=== PATIENT | female | born 1950 | race African-American/Black ===

== ENCOUNTER 2020-04-02 04:24 | Day surgery (SDC) | payer OTHER, BC ==
[2020-03-31 15:37] VITALS: BMI 30.9
[~2020-04-02 04:24] MED LIST: BUPIVACAINE HCL/PF 2.5 MG/ML - 30 ML VIAL IJ ONE; IOHEXOL 180 MG/1 ML ML IJ ONE; LIDOCAINE HCL 1%, 10 MG/ML (20ML VIAL) INF ONE
[2020-04-02] MEDS ORDERED: LIDOCAINE HCL 1%, 10 MG/ML (20ML VIAL) ONE (07:11)
[2020-04-02] MEDS ORDERED: BUPIVACAINE HCL/PF 0.25% (2.5MG/ML) 10 ML VIAL ONE (07:12)
[2020-04-02] MEDS ORDERED: DEXAMETHASONE SOD PHOSPHATE/PF 10 MG/ML SDV ONE (07:18)
[2020-04-02] MEDS ORDERED: BUPIVACAINE HCL/PF 0.75% 10 ML VIAL ONE (07:18)
[2020-04-02] MEDS ORDERED: TRIAMCINOLONE ACET 40MG/1ML VIAL ONE (07:26)
--- NOTE | 2020-04-02 08:01 | PROC ---
Procedure Note Procedure: Pre procedure Diagnosis: Sacroilliac Joint Dysfunction Post Procedure Diagnosis: same Anesthesia: local Procedure Performed: Right & Left Sacroilliac Joint Injection Under Fluoroscopic Guidance After the risks and benefits were explained, informed consent was obtained. The patient was then taken to the procedure room and positioned prone on the procedure table. Time out was performed. The region overlying the right sacroiliac joint was identified using fluoroscopy. The skin was prepped and draped in the usual sterile fashion. The skin and soft tissues were anesthetized using 2% lidocaine. Using fluoroscopic guidance, a 22 gauge 3.5 inch spinal needle was then introduced to the inferior aspect of the posterior Right sacroiliac joint. Omnipaque 180 confirmed appropriate needle placement. 1 cc .5% bupivacaine and 1 cc Kenalog was then injected. The same was repeated on the Left. The patient tolerated the procedure well and there were no complications. The patient was taken to the post procedure recovery area in good condition. Vital signs remained stable before, during, and after the procedure. The patient was given oral and written follow-up instructions. The patient was given a follow up appointment with me in the near future. Dru Carter DO
[2020-04-02] MEDS ORDERED: LIDOCAINE HCL 1%, 10 MG/ML (20ML VIAL) INF ONE (08:10)
[2020-04-02] MEDS ORDERED: BUPIVACAINE HCL/PF 2.5 MG/ML - 30 ML VIAL IJ ONE (08:10)
[2020-04-02] MEDS ORDERED: TRIAMCINOLONE ACET 40MG/1ML VIAL IM ONE ×3 (08:10)
[2020-04-02] MEDS ORDERED: IOHEXOL 180 MG/1 ML ML IJ ONE (08:10)
[2020-04-02 08:30] VITALS: TEMP 96.8
[2020-04-02 08:48] VITALS: BP 140/80; PULSE 60
== END 2020-04-02 08:45 | disposition home or self-care (01) ==
LOC: JASU-SURG 04:24
PROVIDERS: ATTEND Pain Medicine Pain Medicine
PROC: 3E0U3BZ Introduction of Anesthetic Agent into Joints, Percutaneous Approach (ICD-10-PCS; 2020-04-02)
PROC: 3E0U33Z Introduction of Anti-inflammatory into Joints, Percutaneous Approach (ICD-10-PCS; principal; 2020-04-02 08:00)
DX: M53.3 Sacrococcygeal disorders, not elsewhere classified (principal)
CPT/HCPCS: 76000-TC-FY

== ENCOUNTER 2020-07-23 04:53 | Day surgery (SDC) | payer OTHER, BC ==
[2020-07-21 18:23] VITALS: BMI 29.5
[~2020-07-23 04:53] MED LIST changes: +BUPIVACAINE HCL/PF 0.5% (5 MG/ML) 30 ML VIAL IJ ONE; -BUPIVACAINE HCL/PF 2.5 MG/ML - 30 ML VIAL IJ ONE; -LIDOCAINE HCL 1%, 10 MG/ML (20ML VIAL) INF ONE
[2020-07-23] MEDS ORDERED: TRIAMCINOLONE ACET 40MG/1ML VIAL ONE (07:16)
[2020-07-23] MEDS ORDERED: BUPIVACAINE HCL/PF 0.25% (2.5MG/ML) 10 ML VIAL ONE (07:16)
[2020-07-23] MEDS ORDERED: LIDOCAINE HCL/PF 1% SDV 5ML VIAL ONE (07:16)
[2020-07-23] MEDS ORDERED: DEXAMETHASONE SOD PHOSPHATE/PF 10 MG/ML SDV ONE (07:16)
[2020-07-23 08:43] VITALS: TEMP 97.8
[2020-07-23] MEDS ORDERED: IOHEXOL 180 MG/1 ML ML IJ ONE (10:58)
[2020-07-23] MEDS ORDERED: BUPIVACAINE HCL/PF 0.5% (5 MG/ML) 30 ML VIAL IJ ONE (10:58)
[2020-07-23 15:25] VITALS: BP 139/71; PULSE 60
== END 2020-07-23 11:50 | disposition home or self-care (01) ==
LOC: JASU-SURG 04:53
PROVIDERS: ATTEND Pain Medicine Pain Medicine
PROC: BR14YZZ Fluoroscopy of Cervical Facet Joint(s) using Other Contrast (ICD-10-PCS; 2020-07-23)
PROC: 3E0T3BZ Introduction of Anesthetic Agent into Peripheral Nerves and Plexi, Percutaneous Approach (ICD-10-PCS; principal; 2020-07-23 10:00)
DX: M47.812 Spondylosis without myelopathy or radiculopathy, cervical region (principal)

== ENCOUNTER 2020-08-27 04:17 | Day surgery (SDC) | payer OTHER, BC ==
[2020-08-24 14:52] VITALS: BMI 29.5
[2020-08-27] MEDS ORDERED: TRIAMCINOLONE ACET 40MG/1ML VIAL ONE (07:16)
[2020-08-27] MEDS ORDERED: LIDOCAINE HCL/PF 1% SDV 5ML VIAL ONE (07:21)
[2020-08-27] MEDS ORDERED: LIDOCAINE HCL/PF 2% SDV 5ML VIAL ONE (07:21)
[2020-08-27] MEDS ORDERED: BUPIVACAINE HCL/PF 0.25% (2.5MG/ML) 10 ML VIAL ONE (07:23)
[2020-08-27] MEDS ORDERED: BUPIVACAINE HCL/PF 0.75% 10 ML VIAL ONE (07:23)
[2020-08-27] MEDS ORDERED: BUPIVACAINE HCL/PF 0.75% 10 ML VIAL NR ONE (08:23)
[2020-08-27] MEDS ORDERED: LIDOCAINE HCL 1% PRESERVATIVE FREE - 30ML VIAL IJ ONE (08:23)
[2020-08-27] MEDS ORDERED: IOHEXOL 180 MG/1 ML ML IJ ONE (08:23)
[2020-08-27 09:01] VITALS: PULSE 68; TEMP 97.8
[2020-08-27 12:28] VITALS: BP 152/80
== END 2020-08-27 09:40 | disposition home or self-care (01) ==
LOC: JASU-SURG 04:17
PROVIDERS: ATTEND Pain Medicine Pain Medicine
PROC: 3E0T33Z Introduction of Anti-inflammatory into Peripheral Nerves and Plexi, Percutaneous Approach (ICD-10-PCS; 2020-08-27)
PROC: 3E0T3BZ Introduction of Anesthetic Agent into Peripheral Nerves and Plexi, Percutaneous Approach (ICD-10-PCS; principal; 2020-08-27 08:00)
DX: M47.816 Spondylosis without myelopathy or radiculopathy, lumbar region (principal)
CPT/HCPCS: 76000-TC-FY

== ENCOUNTER 2020-09-24 04:21 | Day surgery (SDC) | payer OTHER, BC ==
[2020-09-22 08:52] VITALS: BMI 28.7
[2020-09-24 08:00] VITALS: TEMP 98
[2020-09-24] MEDS ORDERED: LIDOCAINE 1% P/F 10 MG/ML VIAL PNB ONE (10:50)
[2020-09-24 11:58] VITALS: BP 168/84; PULSE 65
== END 2020-09-24 11:55 | disposition home or self-care (01) ==
LOC: JASU-SURG 04:21
PROVIDERS: ATTEND Pain Medicine Pain Medicine
PROC: 01HY3MZ Insertion of Neurostimulator Lead into Peripheral Nerve, Percutaneous Approach (ICD-10-PCS; principal; 2020-09-24 09:30)
DX: G89.4 Chronic pain syndrome (principal); M54.5 Low back pain
CPT/HCPCS: 64555; L8679; 76000-TC-FY

== ENCOUNTER 2020-10-15 04:12 | Day surgery (SDC) | payer OTHER, BC ==
[2020-10-12 13:28] VITALS: BMI 28.7
[2020-10-15] MEDS ORDERED: SODIUM CHLORIDE 0.9% P/F 10 ML VIAL IJ ONE ×2 (11:31)
[2020-10-15] MEDS ORDERED: LIDOCAINE HCL/PF 1% SDV 5ML VIAL ONE (11:32)
[2020-10-15] MEDS ORDERED: LIDOCAINE HCL 1% PRESERVATIVE FREE - 30ML VIAL IJ ONE (11:46)
[2020-10-15 13:17] VITALS: BP 162/72; PULSE 60; TEMP 96.8
== END 2020-10-15 13:35 | disposition home or self-care (01) ==
LOC: JASU-SURG 04:12
PROVIDERS: ATTEND Pain Medicine Pain Medicine
PROC: 01HY3MZ Insertion of Neurostimulator Lead into Peripheral Nerve, Percutaneous Approach (ICD-10-PCS; principal; 2020-10-15 11:30)
DX: G89.4 Chronic pain syndrome (principal); M54.5 Low back pain; Z88.0 Allergy status to penicillin; Z88.2 Allergy status to sulfonamides; Z91.048 Other nonmedicinal substance allergy status
CPT/HCPCS: 64555; C1778; 76000-TC-FY

== ENCOUNTER 2021-04-15 04:27 | Day surgery (SDC) | payer OTHER, BC ==
[2021-04-13 11:19] VITALS: BMI 29.5
[2021-04-15] MEDS ORDERED: LIDOCAINE HCL/PF 1% SDV 5ML VIAL ONE (07:19)
[2021-04-15] MEDS ORDERED: DEXAMETHASONE SOD PHOSPHATE 10 MG/1 ML VIAL ONE (08:54)
[2021-04-15] MEDS ORDERED: DEXAMETHASONE SOD PHOSPHATE 10 MG/1 ML VIAL IM ONE (09:21)
[2021-04-15] MEDS ORDERED: LIDOCAINE HCL 1% PRESERVATIVE FREE - 30ML VIAL IJ ONE (09:21)
[2021-04-15] MEDS ORDERED: IOHEXOL 180 MG/1 ML ML IJ ONE (09:22)
[2021-04-15 09:37] VITALS: BP 153/89; PULSE 63; TEMP 98.5
== END 2021-04-15 10:23 | disposition home or self-care (01) ==
LOC: JASU-SURG 04:27
PROVIDERS: ATTEND Pain Medicine Pain Medicine
PROC: 3E0R33Z Introduction of Anti-inflammatory into Spinal Canal, Percutaneous Approach (ICD-10-PCS; 2021-04-15)
PROC: B01BZZZ Fluoroscopy of Spinal Cord (ICD-10-PCS; 2021-04-15)
PROC: 3E0R3BZ Introduction of Anesthetic Agent into Spinal Canal, Percutaneous Approach (ICD-10-PCS; principal; 2021-04-15 08:45)
DX: M54.16 Radiculopathy, lumbar region (principal); M48.061 Spinal stenosis, lumbar region without neurogenic claudication
CPT/HCPCS: 76000-TC-FY; J1100

== ENCOUNTER 2021-05-31 04:48 | Day surgery (SDC) | payer OTHER, BC ==
[2021-05-30 10:23] VITALS: BMI 29.2
[2021-05-31] MEDS ORDERED: TRIAMCINOLONE ACETONIDE 40 MG/ML 10 ML VIAL NR ONE (09:47)
[2021-05-31] MEDS ORDERED: BUPIVACAINE HCL/PF 0.5% (5 MG/ML) 30 ML VIAL IJ ONE (09:47)
[2021-05-31] MEDS ORDERED: IOHEXOL 180 MG/1 ML ML IJ ONE (09:49)
[2021-05-31 10:47] VITALS: BP 131/67; PULSE 65; TEMP 98.6
== END 2021-05-31 10:48 | disposition home or self-care (01) ==
LOC: JASU-SURG 04:48
PROVIDERS: ATTEND Pain Medicine Pain Medicine
PROC: 3E0U3BZ Introduction of Anesthetic Agent into Joints, Percutaneous Approach (ICD-10-PCS; 2021-05-31)
PROC: 3E0U33Z Introduction of Anti-inflammatory into Joints, Percutaneous Approach (ICD-10-PCS; principal; 2021-05-31 09:00)
DX: M53.3 Sacrococcygeal disorders, not elsewhere classified (principal)
CPT/HCPCS: 76000-TC-FY

== ENCOUNTER 2021-07-05 04:33 | Day surgery (SDC) | payer OTHER, BC ==
[2021-06-29 13:57] VITALS: BMI 28.7
[2021-07-05] MEDS ORDERED: MIDAZOLAM HCL 2 MG/2 ML SINGLE DOSE VIAL ONE ×4 (14:58→15:12)
[2021-07-05] MEDS ORDERED: CLINDAMYCIN 600 MG PREMIX BAG IVPB ONE (15:15)
[2021-07-05] MEDS ORDERED: LIDOCAINE HCL/PF 1% SDV 5ML VIAL ONE (15:26)
[2021-07-05] MEDS ORDERED: LIDOCAINE HCL 2% (20ML MULTI-DOSE VIAL) ONE (15:26)
[2021-07-05] MEDS ORDERED: LIDOCAINE HCL/PF 2% SDV 5ML VIAL ONE (15:27)
[2021-07-05 17:21] VITALS: TEMP 98
[2021-07-05 17:46] VITALS: BP 150/80; PULSE 68
== END 2021-07-05 17:48 | disposition home or self-care (01) ==
LOC: JASU-SURG 04:33
PROVIDERS: ATTEND Pain Medicine Pain Medicine
PROC: B01BYZZ Fluoroscopy of Spinal Cord using Other Contrast (ICD-10-PCS; 2021-07-05)
PROC: 01NB3ZZ Release Lumbar Nerve, Percutaneous Approach (ICD-10-PCS; principal; 2021-07-05 13:30)
DX: M48.062 Spinal stenosis, lumbar region with neurogenic claudication (principal)
CPT/HCPCS: 76000-TC-FY

== ENCOUNTER 2021-11-25 05:33 | Day surgery (SDC) | payer OTHER, BC ==
[2021-11-24 15:53] VITALS: BMI 28.7
[2021-11-25] MEDS ORDERED: KETOROLAC TROMETHAMINE 30 MG/1 ML VIAL ONE ×2 (10:34→10:35)
[2021-11-25] MEDS ORDERED: LIDOCAINE HCL 1% PRESERVATIVE FREE - 30ML VIAL IJ ONE (10:41)
[2021-11-25] MEDS ORDERED: IOHEXOL 180 MG/1 ML ML IJ ONE (10:45)
[2021-11-25] MEDS ORDERED: BUPIVACAINE HCL/PF 0.5% (5MG/ML) 10 ML VIAL IJ ONE (10:49)
[2021-11-25] MEDS ORDERED: KETOROLAC TROMETHAMINE 30 MG/1 ML VIAL IM ONE (10:49)
[2021-11-25 12:15] VITALS: TEMP 98.6
[2021-11-25 12:31] VITALS: BP 126/74; PULSE 62
== END 2021-11-25 11:20 | disposition home or self-care (01) ==
LOC: JASU-SURG 05:33
PROVIDERS: ATTEND Pain Medicine Pain Medicine
PROC: 3E0U33Z Introduction of Anti-inflammatory into Joints, Percutaneous Approach (ICD-10-PCS; 2021-11-25)
PROC: 3E0U3BZ Introduction of Anesthetic Agent into Joints, Percutaneous Approach (ICD-10-PCS; principal; 2021-11-25 10:30)
DX: M16.12 Unilateral primary osteoarthritis, left hip (principal)
CPT/HCPCS: 76000-TC-FY

== ENCOUNTER 2022-02-07 06:58 | Inpatient (IN) | payer OTHER, BC ==
[2022-02-02 16:52] VITALS: BMI 27.8
[2022-02-07] MEDS: CELECOXIB 200 MG CAPSULE PO ONE ×2 (07:47→19:10)
[2022-02-07] MEDS ORDERED: TRANEXAMIC ACID 1000 MG/10 ML VIAL IVPUSH ONE (08:15)
[2022-02-07] MEDS ORDERED: CEFAZOLIN 2 GM in DEXTROSE 5%-WATER - 50 ML IVPB ONE (08:15)
[2022-02-07] MEDS ORDERED: VANCOMYCIN 1,000 MG VIAL (RESTRICTED TO ID ONLY) ONE (08:37)
[2022-02-07] MEDS ORDERED: ceFAZolin SODIUM 1 GM VIAL ONE (08:37)
[2022-02-07] MEDS ORDERED: BUPIVACAINE HCL/PF 0.5% (5MG/ML) 10 ML VIAL ONE (08:50)
[2022-02-07] MEDS ORDERED: ROPIVACAINE HCL/PF 100 MG/20 ML VIAL ONE (08:50)
[2022-02-07] MEDS ORDERED: MIDAZOLAM HCL 2 MG/2 ML SINGLE DOSE VIAL ONE ×2 (08:50→09:58)
[2022-02-07] MEDS ORDERED: SUCCINYLCHOLINE CHLORIDE 200 MG/10 ML SYRINGE ONE (09:44)
[2022-02-07] MEDS ORDERED: PROPOFOL 20 ML ONE ×2 (09:44)
[2022-02-07] MEDS ORDERED: MAG HYDROX/AL HYDROX/SIMETH 30 ML UNIT-DOSE CUP PO PRN (11:10)
[2022-02-07] MEDS ORDERED: ONDANSETRON 4 MG/2 ML VIAL IVPUSH PRN ×2 (11:10→12:14)
[2022-02-07] MEDS ORDERED: LACTATED RINGERS SOLUTION 1,000 ML IV SCH (11:15)
[2022-02-07] MEDS ORDERED: oxyCODONE HCL 5 MG TABLET PO PRN (12:14)
[2022-02-07] MEDS: ACETAMINOPHEN 500 MG TABLET (FP) PO SCH ×4 (12:30→23:16)
[2022-02-07] MEDS: oxyCODONE HCL 5 MG TABLET PO PRN ×2 (15:40→21:09)
[2022-02-07] MEDS ORDERED: DEXTROSE 5%-WATER 100 ML IVPB ONE ×2 (17:35→23:52)
[2022-02-07] MEDS ORDERED: CEFAZOLIN SODIUM 2 GM VIAL ONE ×2 (17:35→23:52)
[2022-02-07] MEDS: CEFAZOLIN SODIUM 2 GM in DEXTROSE 5%-WATER 100 ML IVPB SCH (17:58)
[2022-02-07] MEDS: GABAPENTIN 300 MG CAPSULE PO SCH ×2 (19:11→21:09)
[2022-02-07] MEDS: SENNOSIDES/DOCUSATE COMBO (SENNA PLUS) TABLET (UD) PO SCH (21:10)
[2022-02-07] MEDS ORDERED: HYDROmorphone HCl 2 MG/ML VIAL IVPB ONE (22:45)
[2022-02-07] MEDS: oxyCODONE HCL 10 MG SUSTAINED ACTING TABLET PO SCH (23:33)
[2022-02-08] MEDS: CEFAZOLIN SODIUM 2 GM in DEXTROSE 5%-WATER 100 ML IVPB SCH (01:21)
[2022-02-08] MEDS: ACETAMINOPHEN 500 MG TABLET (FP) PO SCH ×2 (06:33→12:57)
[2022-02-08] MEDS: GABAPENTIN 300 MG CAPSULE PO SCH ×2 (06:33→14:54)
[2022-02-08] MEDS: oxyCODONE HCL 5 MG TABLET PO PRN (07:00)
[2022-02-08 07:28] LABS: HEMOGLOBIN 11.2 G/dL (10.7-15.3); MCH 23.7 pg (25.7-33.7); MCHC 34.1 g/dl (32.0-36.0); MEAN CELL VOLUME 69.5 fl (80-96); MEAN PLT VOLUME 9.5 fl (7.5-11.1); PLATELET COUNT 281.1 10^3/uL (134-434); RBC 4.75 10^6/uL (3.60-5.2); RDW 19.9 % (11.6-15.6); WHITE BLOOD COUNT 9.6 10^3/uL (4.0-10.8)
[2022-02-08] MEDS ORDERED: ASPIRIN 325 MG TABLET PO SCH (08:00)
[2022-02-08] MEDS: SENNOSIDES/DOCUSATE COMBO (SENNA PLUS) TABLET (UD) PO SCH (09:14)
[2022-02-08] MEDS: oxyCODONE HCL 10 MG SUSTAINED ACTING TABLET PO SCH (09:14)
[2022-02-08] MEDS ORDERED: MULTIVITAMINS (DAILY MVI) TABLET (FP) PO SCH (10:00)
[2022-02-08] MEDS ORDERED: PANTOPRAZOLE 40 MG TABLET PO SCH (10:00)
[2022-02-08] MEDS ORDERED: PATIENT'S OWN MEDICATION (NON-FORMULARY) (Amlodipine Besylate/Benazepril [Lotrel 5-10 Mg C PO SCH (10:00)
[2022-02-08] MEDS ORDERED: LISINOPRIL 10 MG TABLET PO SCH (10:00)
[2022-02-08] MEDS ORDERED: amLODIPine BESYLATE 5 MG TABLET (FP) PO SCH (10:00)
[2022-02-08 15:08] VITALS: BP 112/55; PULSE 56; TEMP 98.5
== END 2022-02-08 16:10 | disposition home health service (06) | DRG 470 ==
LOC: UNDOADMIN 06:58 → FM/S 06:58
PROVIDERS: ADMIT Orthopaedic Surgery; ATTEND Orthopaedic Surgery
PROC: 8E0W0CZ Robotic Assisted Procedure of Trunk Region, Open Approach (ICD-10-PCS; 2022-02-07)
PROC: 0SRB0JZ Replacement of Left Hip Joint with Synthetic Substitute, Open Approach (ICD-10-PCS; principal; 2022-02-07 10:12)
DX: M16.12 Unilateral primary osteoarthritis, left hip (principal); I10 Essential (primary) hypertension
CPT/HCPCS: 36415; 73502-TC-LT-FY; 85027; 88305-TC; 88311-TC; 94760; 97010-GP; 97116-GP; 97161-GP

== ENCOUNTER 2022-11-07 04:05 | Day surgery (SDC) | payer OTHER, BC ==
[2022-11-06 09:59] VITALS: BMI 28.7
[~2022-11-07 04:05] MED LIST changes: +ACETAMINOPHEN 500 MG TABLET (FP) PO PRN; -BUPIVACAINE HCL/PF 0.5% (5 MG/ML) 30 ML VIAL IJ ONE; -IOHEXOL 180 MG/1 ML ML IJ ONE
[2022-11-07] MEDS ORDERED: LIDOCAINE 1% P/F 10 MG/ML VIAL PNB ONE (09:55)
[2022-11-07 11:19] VITALS: BP 119/78; PULSE 58; RESP 17; TEMP 97.9
[2022-11-07] MEDS ORDERED: ACETAMINOPHEN 500 MG TABLET (FP) PO PRN (16:03)
== END 2022-11-07 11:12 | disposition home or self-care (01) ==
LOC: JASU-SURG 04:05
PROVIDERS: ATTEND Pain Medicine Pain Medicine
PROC: 01HY3MZ Insertion of Neurostimulator Lead into Peripheral Nerve, Percutaneous Approach (ICD-10-PCS; principal; 2022-11-07 10:00)
DX: G89.4 Chronic pain syndrome (principal); M54.2 Cervicalgia
CPT/HCPCS: 64555; C1778; 76000-TC-FY

== ENCOUNTER 2023-01-19 04:09 | Day surgery (SDC) | payer OTHER, BC ==
[2023-01-18 10:40] VITALS: BMI 28.7
[~2023-01-19 04:09] MED LIST changes: -ACETAMINOPHEN 500 MG TABLET (FP) PO PRN; +BUPIVACAINE HCL/PF 0.5% (5MG/ML) 10 ML VIAL IJ ONE; +LIDOCAINE HCL 1% PRESERVATIVE FREE - 30ML VIAL IJ ONE; +TRIAMCINOLONE ACET 40MG/1ML VIAL IM ONE
[2023-01-19] MEDS ORDERED: TRIAMCINOLONE ACET 40MG/1ML VIAL ONE (07:28)
[2023-01-19] MEDS ORDERED: LIDOCAINE HCL/PF 1% SDV 5ML VIAL ONE (07:28)
[2023-01-19] MEDS ORDERED: BUPIVACAINE HCL/PF 0.5% (5MG/ML) 10 ML VIAL ONE (07:28)
[2023-01-19] MEDS ORDERED: ACETAMINOPHEN 500 MG TABLET (FP) PO PRN (09:16)
[2023-01-19] MEDS ORDERED: TRIAMCINOLONE ACET 40MG/1ML VIAL IM ONE (11:12)
[2023-01-19] MEDS ORDERED: IOHEXOL 180 MG/1 ML ML IJ ONE (11:12)
[2023-01-19] MEDS ORDERED: LIDOCAINE HCL 1% PRESERVATIVE FREE - 30ML VIAL IJ ONE (11:12)
[2023-01-19] MEDS ORDERED: BUPIVACAINE HCL/PF 0.5% (5MG/ML) 10 ML VIAL IJ ONE (11:12)
[2023-01-19 11:50] VITALS: RESP 18
[2023-01-19 12:24] VITALS: BP 120/70; PULSE 70; TEMP 97.6
== END 2023-01-19 12:00 | disposition home or self-care (01) ==
LOC: JASU-SURG 04:09
PROVIDERS: ATTEND Pain Medicine Pain Medicine
PROC: 3E0U3BZ Introduction of Anesthetic Agent into Joints, Percutaneous Approach (ICD-10-PCS; 2023-01-19)
PROC: 3E0U33Z Introduction of Anti-inflammatory into Joints, Percutaneous Approach (ICD-10-PCS; principal; 2023-01-19 11:30)
DX: M53.3 Sacrococcygeal disorders, not elsewhere classified (principal)
CPT/HCPCS: 76000-TC-FY

== ENCOUNTER 2023-02-20 04:57 | Day surgery (SDC) | payer OTHER, BC ==
[2023-02-19 10:28] VITALS: BMI 27.1
[2023-02-20] MEDS ORDERED: LIDOCAINE HCL 1% PRESERVATIVE FREE - 30ML VIAL IJ ONE (09:38)
[2023-02-20] MEDS ORDERED: BUPIVACAINE HCL/PF 0.75% 10 ML VIAL NR ONE (09:46)
[2023-02-20] MEDS ORDERED: ACETAMINOPHEN 500 MG TABLET (FP) PO PRN (10:09)
[2023-02-20 10:26] VITALS: RESP 20
[2023-02-20 10:58] VITALS: BP 116/60; PULSE 64; TEMP 97.8
== END 2023-02-20 11:03 | disposition home or self-care (01) ==
LOC: JASU-SURG 04:57
PROVIDERS: ATTEND Pain Medicine Pain Medicine
PROC: 3E0T33Z Introduction of Anti-inflammatory into Peripheral Nerves and Plexi, Percutaneous Approach (ICD-10-PCS; 2023-02-20)
PROC: 3E0T3BZ Introduction of Anesthetic Agent into Peripheral Nerves and Plexi, Percutaneous Approach (ICD-10-PCS; principal; 2023-02-20 10:15)
DX: M47.816 Spondylosis without myelopathy or radiculopathy, lumbar region (principal)
CPT/HCPCS: 76000-TC-FY

== ENCOUNTER 2023-03-30 04:10 | Day surgery (SDC) | payer OTHER, BC ==
[2023-03-07 13:39] VITALS: BMI 27.1
[~2023-03-30 04:10] MED LIST changes: +ACETAMINOPHEN 500 MG TABLET (FP) PO PRN; -BUPIVACAINE HCL/PF 0.5% (5MG/ML) 10 ML VIAL IJ ONE; +BUPIVACAINE HCL/PF 0.75% 10 ML VIAL NR ONE; -LIDOCAINE HCL 1% PRESERVATIVE FREE - 30ML VIAL IJ ONE; +LIDOCAINE HCL 1% PRESERVATIVE FREE - 30ML VIAL INF ONE; -TRIAMCINOLONE ACET 40MG/1ML VIAL IM ONE
[2023-03-30] MEDS ORDERED: ACETAMINOPHEN 500 MG TABLET (FP) PO PRN (11:14)
[2023-03-30] MEDS ORDERED: LIDOCAINE HCL 1% PRESERVATIVE FREE - 30ML VIAL INF ONE (11:46)
[2023-03-30] MEDS ORDERED: BUPIVACAINE HCL/PF 0.75% 10 ML VIAL NR ONE (11:46)
[2023-03-30 12:14] VITALS: BP 130/78; PULSE 56; RESP 16; TEMP 97.3
== END 2023-03-30 12:40 | disposition home or self-care (01) ==
LOC: JASU-SURG 04:10
PROVIDERS: ATTEND Pain Medicine Pain Medicine
PROC: 3E0T33Z Introduction of Anti-inflammatory into Peripheral Nerves and Plexi, Percutaneous Approach (ICD-10-PCS; 2023-03-30)
PROC: 3E0T3BZ Introduction of Anesthetic Agent into Peripheral Nerves and Plexi, Percutaneous Approach (ICD-10-PCS; principal; 2023-03-30 11:30)
DX: M47.816 Spondylosis without myelopathy or radiculopathy, lumbar region (principal)
CPT/HCPCS: 76000-TC-FY

== ENCOUNTER 2023-05-01 04:13 | Day surgery (SDC) | payer OTHER, BC ==
[2023-04-26 15:55] VITALS: BMI 27.1
[2023-05-01] MEDS ORDERED: BUPIVACAINE HCL/PF 0.25% (2.5MG/ML) 10 ML VIAL ONE (07:48)
[2023-05-01] MEDS ORDERED: SODIUM CHLORIDE 0.9% P/F 10 ML VIAL IJ ONE (08:00)
[2023-05-01 09:55] VITALS: RESP 18
[2023-05-01] MEDS ORDERED: ACETAMINOPHEN 500 MG TABLET (FP) PO PRN (10:13)
[2023-05-01] MEDS ORDERED: LIDOCAINE 1% P/F 10 MG/ML VIAL INF ONE (11:56)
[2023-05-01] MEDS ORDERED: LIDOCAINE HCL/PF 2% SDV 5ML VIAL INF ONE (11:57)
[2023-05-01] MEDS ORDERED: DEXAMETHASONE SOD PHOSPHATE 10 MG/1 ML VIAL IVPUSH ONE (11:58)
[2023-05-01] MEDS ORDERED: BUPIVACAINE HCL/PF 0.75% 10 ML VIAL NR ONE (11:58)
[2023-05-01 15:02] VITALS: TEMP 97.8
[2023-05-01 15:03] VITALS: BP 129/70; PULSE 60
== END 2023-05-01 13:24 | disposition home or self-care (01) ==
LOC: JASU-SURG 04:13
PROVIDERS: ATTEND Pain Medicine Pain Medicine
PROC: 015B3ZZ Destruction of Lumbar Nerve, Percutaneous Approach (ICD-10-PCS; principal; 2023-05-01 11:30)
DX: M47.816 Spondylosis without myelopathy or radiculopathy, lumbar region (principal)
CPT/HCPCS: 76000-TC-FY; J1100

== ENCOUNTER 2023-06-01 04:54 | Day surgery (SDC) | payer OTHER, BC ==
[2023-05-23 15:45] VITALS: BMI 27.1
[~2023-06-01 04:54] MED LIST changes: +DEXAMETHASONE SOD PHOSPHATE 10 MG/1 ML VIAL IVPUSH ONE; +LIDOCAINE 1% P/F 10 MG/ML VIAL INF ONE; -LIDOCAINE HCL 1% PRESERVATIVE FREE - 30ML VIAL INF ONE; +LIDOCAINE HCL/PF 2% SDV 5ML VIAL INF ONE
[2023-06-01] MEDS ORDERED: LIDOCAINE HCL/PF 2% SDV 5ML VIAL ONE (07:26)
[2023-06-01] MEDS ORDERED: DEXAMETHASONE SOD PHOSPHATE 10 MG/1 ML VIAL ONE (07:26)
[2023-06-01] MEDS ORDERED: LIDOCAINE HCL/PF 1% SDV 5ML VIAL ONE (07:26)
[2023-06-01] MEDS ORDERED: BUPIVACAINE HCL/PF 0.75% 10 ML VIAL ONE (07:26)
[2023-06-01 12:36] VITALS: RESP 18
[2023-06-01] MEDS ORDERED: ACETAMINOPHEN 500 MG TABLET (FP) PO PRN (13:40)
[2023-06-01 15:15] VITALS: BP 139/85; PULSE 67; TEMP 97.7
== END 2023-06-01 14:45 | disposition home or self-care (01) ==
LOC: JASU-SURG 04:54
PROVIDERS: ATTEND Pain Medicine Pain Medicine
PROC: 01553ZZ Destruction of Median Nerve, Percutaneous Approach (ICD-10-PCS; principal; 2023-06-01 14:15)
DX: M47.816 Spondylosis without myelopathy or radiculopathy, lumbar region (principal)
CPT/HCPCS: 76000-TC-FY; J1100

== ENCOUNTER 2023-07-20 04:15 | Day surgery (SDC) | payer OTHER, BC ==
[2023-07-18 13:28] VITALS: BMI 27.1
[~2023-07-20 04:15] MED LIST changes: -ACETAMINOPHEN 500 MG TABLET (FP) PO PRN; -BUPIVACAINE HCL/PF 0.75% 10 ML VIAL NR ONE; +DEXAMETHASONE SOD PHOSPHATE 10 MG/1 ML VIAL IM ONE; -DEXAMETHASONE SOD PHOSPHATE 10 MG/1 ML VIAL IVPUSH ONE; +IOHEXOL 180 MG/1 ML ML IJ ONE; -LIDOCAINE 1% P/F 10 MG/ML VIAL INF ONE; +LIDOCAINE HCL 1% PRESERVATIVE FREE - 30ML VIAL IJ ONE; -LIDOCAINE HCL/PF 2% SDV 5ML VIAL INF ONE
[2023-07-20] MEDS ORDERED: LIDOCAINE HCL/PF 1% SDV 5ML VIAL ONE (07:08)
[2023-07-20] MEDS ORDERED: DEXAMETHASONE SOD PHOSPHATE 10 MG/1 ML VIAL ONE (07:08)
[2023-07-20] MEDS ORDERED: SODIUM CHLORIDE 0.9% P/F 10 ML VIAL IJ ONE (07:23)
[2023-07-20] MEDS ORDERED: ACETAMINOPHEN 500 MG TABLET (FP) PO PRN (14:41)
[2023-07-20] MEDS ORDERED: DEXAMETHASONE SOD PHOSPHATE 10 MG/1 ML VIAL IM ONE (15:17)
[2023-07-20] MEDS ORDERED: IOHEXOL 180 MG/1 ML ML IJ ONE (15:18)
[2023-07-20] MEDS ORDERED: LIDOCAINE HCL 1% PRESERVATIVE FREE - 30ML VIAL IJ ONE (15:18)
[2023-07-20 16:50] VITALS: RESP 18
[2023-07-20 16:52] VITALS: BP 142/70; PULSE 60; TEMP 97.9
== END 2023-07-20 16:05 | disposition home or self-care (01) ==
LOC: JASU-SURG 04:15
PROVIDERS: ATTEND Pain Medicine Pain Medicine
PROC: 3E0R3BZ Introduction of Anesthetic Agent into Spinal Canal, Percutaneous Approach (ICD-10-PCS; 2023-07-20)
PROC: 3E0R33Z Introduction of Anti-inflammatory into Spinal Canal, Percutaneous Approach (ICD-10-PCS; principal; 2023-07-20 14:45)
DX: M54.16 Radiculopathy, lumbar region (principal)
CPT/HCPCS: 76000-TC-FY; J1100